=== PATIENT | male | born 1985 | race Caucasian/White ===

== ENCOUNTER → 2022-12-20 15:55 | Outpatient (CLI) | payer OTHER, SELFPAY ==
--- NOTE | 2022-12-20 16:09 | DI.MRI.S_ITS ---
PROCEDURE: MR ANKLE RT WO CON INDICATIONS: Pain in right ankle TECHNIQUE: Noncontrast sagittal T1 spin echo and T2 fast spin echo with fat saturation, axial proton density fast spin echo and T2 fast spin echo with fat saturation, coronal T1 spin echo and T2 fast spin echo with fat saturation through the ankle/hindfoot. COMPARISON: None. FINDINGS: Image quality: Excellent. Bones and joints: No bone marrow contusions or fractures. No hindfoot coalitions. No osteochondral injuries of the talar dome. Small amount of tibiotalar joint effusion is seen, no gross loose bodies. Medial structures: The posterior tibialis, flexor digitorum longus, and flexor hallucis longus tendons are intact. Small amount of fluid distending flexor tendon sheath is seen. The posterior tibial neurovascular bundle appears normal within the tarsal tunnel, without extrinsic mass effect. The deltoid ligament and spring ligament are mildly thickened. Lateral structures: The anterior talofibular, calcaneofibular, and posterior talofibular ligaments appear mildly thickened. More superiorly, the anterior and posterior tibiofibular ligaments appear intact, as is the intermalleolar ligament. The tibiofibular syndesmosis is normal in width at 2 mm or less. The peroneus longus and brevis tendons demonstrate normal location and morphology. Adjacent bony peroneal tubercle and retrotrochlear prominence are normal in size. The sinus tarsi demonstrates normal fatty signal, without edema, fibrosis, or cyst formation. Visualized sinus tarsi components (cervical ligament, interosseous talocalcaneal ligament, roots of the inferior extensor retinaculum) appear normal. The calcaneonavicular and calcaneocuboid components of the bifurcate ligament appear intact. The dorsal calcaneocuboid ligament appears intact. Anterior structures: The tibialis anterior, extensor hallucis longus, and extensor digitorum longus tendons appear intact. The dorsal talonavicular ligament appears intact. Posterior and plantar structures: Achilles tendon is mildly thickened near its posterior calcaneal insertion. Medial and lateral bands of the plantar fascia are of normal thickness. No abductor digiti quinti muscle atrophy to suggest Shelton neuropathy. IMPRESSION: 1. Low-grade tenosynovitis involving flexor tendons. 2. Suggestion of mild distal Achilles tendinosis extending to its posterior calcaneal insertion. No Achilles tendon rupture. 3. No marrow edema. No fracture or dislocation. No osteochondral injuries of talar dome. 4. Low-grade medial ankle ligament sprain. Low-grade sprain also seen involving anterior and posterior talofibular ligament and calcaneofibular ligament. No full-thickness ankle ligament rupture. Dictated by: Joseph Vale M.D. on 12/20/2022 at 16:53 Approved by: Joseph Vale M.D. on 12/20/2022 at 16:55
== END ==
PROVIDERS: Referring Provider Podiatrist; Visit Provider Podiatrist
DX: M25.371 Other instability, right ankle (principal); M76.71 Peroneal tendinitis, right leg; M25.571 Pain in right ankle and joints of right foot; M65.871 Other synovitis and tenosynovitis, right ankle and foot
CPT/HCPCS: 73721

== ENCOUNTER 2025-02-08 16:39 | Emergency (ER) | payer OTHER, SELFPAY ==
[2025-02-08 16:51] VITALS: BP 123/66; PULSE 72; RESP 16; TEMP 36.9; O2SAT 98; BMI 29.0
--- NOTE | 2025-02-08 17:12 | ED.WOUNDLAC ---
HPI - Wound/Laceration General Chief Complaint: Wound/Laceration Stated Complaint: lt hand laceration Time Seen by Provider: 02/08/25 17:11 Source: patient Mode of arrival: Ambulatory History of Present Illness HPI narrative: Mr. Bennett is a pleasant 39-year-old male with no reported past medical history, up-to-date in his Tdap vaccine who presents to the emergency department for a left wrist laceration that occurred prior to arrival while he was using a razor blade to cut plastic. Bleeding controlled with direct pressure. 1 cm linear laceration overlying the palmar aspect of the left wrist. States his Tdap is within the last 5 years. No blood thinners. No medical problems. He is accompanied by his . Related Data Allergies Allergy/AdvReac Type Severity Reaction Status Date / Time No Known Drug Allergies Allergy Verified 02/08/25 16:51 Review of Systems Review of Systems ROS Unobtainable: All systems reviewed & are unremarkable except as noted in HPI and below Patient History Social History Smoking Status: Never smoker Smoking Status: Never smoker Exam Narrative Exam Narrative: GENERAL: 39 year old patient appears stated age. Well-developed patient, in no acute distress. HEAD: Atraumatic. Normocephalic. EYES: No scleral icterus. No injection or drainage. NECK: Trachea midline. Cervical ROM intact. CARDIOVASCULAR: Regular rate RESPIRATORY: ?Nonlabored respirations. ?Speaking in clear, full sentences. ? EXTREMITIES: 1 cm linear laceration on the palmar aspect of the left distal wrist. Bleeding controlled with direct pressure. Small amount of fatty tissue visualized, deeper structures are intact. Patient is able to flex and extend wrist and flex and extend all 5 phalanxes without difficulty. Strong radial pulse and brisk capillary refill in the fingers. NEURO: AOx3. ?Clear speech. ?Moves all 4 extremities appropriately. SKIN: Skin is warm, dry, no rashes. Laceration described above. Initial Vital Signs Initial Vital Signs: Vital Signs Temperature 98.5 F 02/08/25 16:51 Pulse Rate 72 02/08/25 16:51 Respiratory Rate 16 02/08/25 16:51 Blood Pressure 123/66 02/08/25 16:51 Pulse Oximetry 98 02/08/25 16:51 Oxygen Delivery Method Room Air 02/08/25 16:51 Procedures Laceration Repair Laceration 1: Site: upper extremity (L wrist) Side (If applicable): left Size (cm): 1 Description: linear Depth: simple, single layer Pre-repair: wound explored, irrigated extensively (diluted betadine) and deep structures intact Skin layer closed with: dermabond Course Vital Signs Vital signs: Vital Signs - 8 hr 02/08/25 16:51 Temperature 98.5 F Pulse Rate 72 Respiratory Rate 16 Blood Pressure 123/66 Pulse Oximetry 98 Oxygen Delivery Method Room Air MDM - Wound/Laceration MDM Narrative Medical decision making narrative: 39-year-old male with no reported past medical history, up-to-date in his Tdap vaccine who presents to the emergency department for a left wrist laceration that occurred prior to arrival while he was using a razor blade to cut plastic. Differential diagnosis includes but is not limited to laceration, foreign body, etc. On exam patient is in no acute distress, nontoxic-appearing, all vital signs within normal limits. He has a 1 cm laceration on the palmar aspect of the left wrist. His Tdap is up-to-date. Plan to proceed with local anesthesia and suture repair however patient would prefer Dermabond repair. Discussed risks benefits of sutures, agree to proceed with Dermabond. Wound was cleansed and irrigated extensively, reapproximated using Dermabond, patient had good results in a nonadherent dressing Santi wrap was applied for support. Discussed proper wound care, signs and symptoms to return to the ED, all questions answered, patient stable for discharge home. Discharge Plan Departure Patient Disposition: Home Clinical Impression: Laceration of left wrist Qualifiers: Encounter type: initial encounter Qualified Code(s): S61.512A - Laceration without foreign body of left wrist, initial encounter Instructions: DI for Laceration Repair-Skin Glue Activity Restrictions/Additional Instructions: Dear Mr. Bennett, Thank you for coming to the emergency department. Today you were evaluated for a left wrist laceration. Your wound was cleansed, irrigated and repaired using Dermabond which is skin glue. Please keep the dressing on your wound clean, dry, and intact for the next 24 hours. After this time, you may remove the dressing and gently clean the wound with soap and water, then pat dry. Keep the wound clean and covered. Avoid soaking the wound in any water such as a bath, pool, or the ocean. If you develop any signs of wound infection such as increased redness, pus drainage, streaking redness, or fevers, please return to the ER immediately for evaluation. Please follow up with your primary care doctor within the next 2-3 days for ER follow-up. (If you do not have a PCP you can call [phone]. ?to schedule an appointment with an [facility] Primary Care Provider) IF YOU DEVELOP ANY NEW OR WORSENING SYMPTOMS, RETURN TO THE ER! Please read the attached instructions, they highlight more specific treatments and interventions for you at home. Thank you for letting me participate in your care, Nieves Valerio PA-C Referrals: Miscellaneous,Doctor, [Primary Care Provider, Medical] Stand Alone Forms: Patient Portal/API
== END 2025-02-08 18:05 | disposition home or self-care (01) ==
PROVIDERS: Emergency Provider Physician Assistant
DX: S61.512A Laceration without foreign body of left wrist, initial encounter (principal); W26.9XXA Contact with unspecified sharp object(s), initial encounter
CPT/HCPCS: 12001; 99282